=== PATIENT | male | born 1985 | race Caucasian/White ===

== ENCOUNTER 2018-09-30 16:20 | Inpatient (IN) | payer MEDICAID, OTHER ==
[~2018-09-30] VITALS: Ht 172.7 cm; Wt 65.8 kg
[~2018-09-30 16:20] MED LIST: ACET160S PO; BISA-81 PR; BISACODYL; DIPH25CA83 PO; DOCU-150 PO; FAMO20TA8 PO; FLUO-124 PO; FLUO10CA25; GABA-531 PO; MAGN250T29; MULT-348 PO; OLAN2.5T29 PO; OXYBUTININ; OXYBUTYNIN; TAMS0.4C31 PO; TRAZ-212 PO; [UNRECOGNIZED DRUG - CODE]; [UNRECOGNIZED DRUG - CODE] RC; [UNRECOGNIZED DRUG - OTHER]; bactrim PO; cranberry PO
[2018-09-30] MEDS ORDERED: SODIUM CHLORIDE 0.9% 1000ML BAG (SEPSIS BOLUS) IV ONE (18:45)
[2018-09-30 19:03] LABS: BASOPHILS % 0.4 % (0.0-2.0); EOSINOPHILS % 1.7 % (0.0-5.0); HEMATOCRIT. 47.8 % (42.0-52.0); LYMPHOCYTES % 28.1 % (20.0-50.0); MEAN CORPUSCULAR VOLUME 89.4 fL (80.0-94.0); MEAN PLATELET VOLUME 8.3 fl (7.4-10.4); MONOCYTES % 11.4 % (2.0-8.0); NEUTROPHILS % 58.4 % (40.0-76.0); PLATELET 168 x1000/uL (130-400); RED BLOOD CELL COUNT 5.34 mill/uL (4.7-6.1); RED CELL DISTRIBUTION WIDTH 14.5 % (11.6-14.6)
[2018-09-30 19:09] LABS: CHLORIDE 102 mEq/L (98-107)
[2018-09-30 19:11] LABS: INR 1.2; PARTIAL THROMBOPLASTIN TIME 26.7 sec (23.4-31.0)
[2018-09-30] MEDS ORDERED: ASPIRIN 81MG TABLET PO ONE (21:15)
[2018-09-30 21:37] LABS: CLARITY URINE CLEAR (CLEAR); COLOR URINE YELLOW (YELLOW); KETONES URINE NEGATIVE (NEGATIVE); LEUKOCYTE ESTERASE URINE 1+ (NEGATIVE); NITRITE URINE NEGATIVE (NEGATIVE); OCCULT BLOOD URINE NEGATIVE (NEGATIVE); PROTEIN URINE NEGATIVE (NEGATIVE); SPECIFIC GRAVITY URINE 1.008 (1.005-1.030); UROBILINOGEN URINE 0.2 E.U./dL (0.2-1.0)
[2018-09-30] MEDS ORDERED: IOHEXOL-350 100 ML BOTTLE ONE (22:34)
[2018-09-30] MEDS ORDERED: ONDANSETRON HCL 4MG/2ML INJ IV PRN (23:30)
[2018-09-30] MEDS ORDERED: CLONIDINE 0.1MG TABLET PO PRN (23:30)
[2018-09-30] MEDS ORDERED: IPRATROPIUM/ALBUTEROL 0.5-3(2.5)MG/3ML NEB INH PRN (23:30)
[2018-09-30] MEDS ORDERED: GUAIFENESIN 200MG/10ML SUGAR FREE UDC PO PRN (23:30)
[2018-09-30] MEDS ORDERED: HYDROMORPHONE HCL/PF 2MG/ML CPJ IV PRN (23:30)
[2018-10-01] VITALS (8 sets, daily range): BP systolic 95–114; BP diastolic 58–76
[2018-10-01] MEDS ORDERED: TRAZ-212 PO ×2 (01:55→12:47)
[2018-10-01] MEDS ORDERED: BACL20TA PO ×2 (01:55→12:47)
[2018-10-01] MEDS ORDERED: BISA10SU62 RC ×2 (01:57→12:47)
[2018-10-01] MEDS ORDERED: LEVOFLOXACIN 500MG PREMIX 100 ML IV SCH (02:00)
[2018-10-01 06:14] LABS: CHLORIDE 106 mEq/L (98-107)
[2018-10-01 06:31] LABS: BASOPHILS % 0.6 % (0.0-2.0); EOSINOPHILS % 1.4 % (0.0-5.0); HEMATOCRIT. 45.3 % (42.0-52.0); HEMOGLOBIN. 15.1 g/dL (14.0-18.0); LYMPHOCYTES % 32.9 % (20.0-50.0); MEAN CORPUSCULAR HEMOGLOBIN 29.7 pg (28.0-32.0); MEAN CORPUSCULAR VOLUME 88.8 fL (80.0-94.0); MEAN PLATELET VOLUME 8.6 fl (7.4-10.4); MONOCYTES % 9.9 % (2.0-8.0); NEUTROPHILS % 55.2 % (40.0-76.0); PLATELET 164 x1000/uL (130-400); RED CELL DISTRIBUTION WIDTH 14.3 % (11.6-14.6)
[2018-10-01] MEDS: ENOXAPARIN 40MG/0.4ML SYR SUBCUT SCH (09:36)
[2018-10-01 12:38] LABS: BG BASE EXCESS 4.3 mmol/L (-2.0-2.0); BG CARBOXYHEMOGLOBIN 0.7 % (0.5-1.5); BG DEOXYHEMOGLOBIN 0.9 % (0.0-5.0); BG METHEMOGLOBIN 0.3 % (0.0-1.5); BG OXYGEN SATURATION 99.1 % (92.0-98.5); BG OXYHEMOGLOBIN 98.1 % (94.0-97.0); BG PCO2 48.1 mmHg (35.0-45.0); BG PH 7.413 (7.350-7.450); BG PO2 148.4 mmHg (75.0-100.0); BG SAMPLE SITE LEFT RADIAL; BG TOTAL HEMOGLOBIN 16.1 g/dL (12.0-18.0); BG VENT MODE NASAL CANNULA
[2018-10-01] MEDS ORDERED: BISACODYL 10MG SUPP PR PRN (20:00)
[2018-10-01] MEDS: TRAZODONE HCL 50MG TABLET PO SCH (22:13)
[2018-10-01] MEDS: BACLOFEN 20MG TABLET PO SCH (23:23)
[2018-10-02] MEDS: LEVOFLOXACIN 500MG PREMIX 100 ML IV SCH (00:52)
[2018-10-02 04:00] VITALS: BP 103/68
[2018-10-02] MEDS: BACLOFEN 20MG TABLET PO SCH ×4 (06:00→20:25)
[2018-10-02] MEDS: ENOXAPARIN 40MG/0.4ML SYR SUBCUT SCH (08:00)
[2018-10-02] MEDS: DOCUSATE SODIUM 100MG CAPSULE PO PRN (08:01)
[2018-10-02 08:04] VITALS: BP 102/69
[2018-10-02 12:00] VITALS: BP 86/57
[2018-10-02] MEDS ORDERED: INFLUENZA VIRUS VACCINE(AFLURIA) 0.5ML SYR IM ONE (12:00)
[2018-10-02 16:00] VITALS: BP 102/67
[2018-10-02 17:33] VITALS: BP 102/68
[2018-10-02] MEDS: ACETAMINOPHEN 325MG TABLET PO PRN (18:24)
[2018-10-02 20:00] VITALS: BP 106/70
[2018-10-02] MEDS: TRAZODONE HCL 50MG TABLET PO SCH (20:25)
[2018-10-02] MEDS: HYDROCODONE/ACETAMINOPHEN 5/325MG TABLET PO PRN (20:27)
[2018-10-03] VITALS: BP 90/54
[2018-10-03] MEDS: ACETAMINOPHEN 325MG TABLET PO PRN (00:24)
[2018-10-03] MEDS: LEVOFLOXACIN 500MG PREMIX 100 ML IV SCH (00:24)
[2018-10-03 04:00] VITALS: BP 108/74
[2018-10-03] MEDS: BACLOFEN 20MG TABLET PO SCH ×4 (06:00→13:25)
[2018-10-03 07:58] LABS: HEMATOCRIT. 45.8 % (42.0-52.0); HEMOGLOBIN. 15.6 g/dL (14.0-18.0); MEAN CORPUSCULAR HEMOGLOBIN 30.1 pg (28.0-32.0); MEAN CORPUSCULAR VOLUME 88.7 fL (80.0-94.0); PLATELET 167 x1000/uL (130-400); RED BLOOD CELL COUNT 5.16 mill/uL (4.7-6.1); RED CELL DISTRIBUTION WIDTH 14.3 % (11.6-14.6)
[2018-10-03 08:00] VITALS: BP 96/63
[2018-10-03 08:15] LABS: CHLORIDE 101 mEq/L (98-107)
[2018-10-03] MEDS: HYDROCODONE/ACETAMINOPHEN 5/325MG TABLET PO PRN (08:29)
[2018-10-03] MEDS: ENOXAPARIN 40MG/0.4ML SYR SUBCUT SCH (08:30)
[2018-10-03 10:34] LABS: PLATELET ESTIMATE NORMAL
[2018-10-03 12:00] VITALS: BP 117/71
[2018-10-03] MEDS: DOCUSATE SODIUM 100MG CAPSULE PO PRN (13:17)
[2018-10-03 13:25] VITALS: BP 116/65
== END 2018-10-03 15:55 | disposition home or self-care (01) | DRG 143 ==
LOC: ER 16:20 → 7WST 21:21 → EDBEDREQ 21:26 → ENRESERV 23:12
PROVIDERS: ADMIT Hospitalist; ATTEND Hospitalist
DX: J98.11 Atelectasis (principal); G82.50 Quadriplegia, unspecified; R06.02 Shortness of breath; I10 Essential (primary) hypertension; I95.9 Hypotension, unspecified; Z88.1 Allergy status to other antibiotic agents; Z79.899 Other long term (current) drug therapy; Z87.440 Personal history of urinary (tract) infections
CPT/HCPCS: 36415; 36600; 71045; 71275; 80048; 82375; 82805; 83605; 84145; 84484; 85007; 85027; 85379; 90686; 93005; 93970; 96360; 96361; 99285; J1650; J1956; J7030; J7040; Q9967